=== PATIENT | female | born 1945 | race Caucasian/White ===

== ENCOUNTER → 2016-02-21 | Outpatient (CLI) | payer MEDICARE | LOC: RAD 09:23 | PROVIDERS: ATTEND Internal Medicine Gastroenterology | DX: D50.8 Other iron deficiency anemias (principal) | CPT/HCPCS: 74250 ==

== ENCOUNTER 2016-06-15 22:04 | Emergency (ER) | payer MEDICARE ==
[2016-06-15 23:47] LABS: ABSOLUTE BASOPHILS # (AUTO) 0.1 10^3/uL (0.0-0.2); ABSOLUTE EOSINOPHILS # (AUTO) 0.4 10^3/uL (0.0-0.6); ABSOLUTE LYMPHOCYTES (AUTO) 3.1 10^3/uL (0.5-4.7); ABSOLUTE MONOCYTES (AUTO) 0.8 10^3/uL (0.1-1.4); EOSINOPHILS % (AUTO) 4.2 % (0-6); HEMOGLOBIN 12.4 g/dL (12.0-15.5); HGB HCT DIFFERENCE -0.8; LYMPHOCYTES % (AUTO) 33.1 % (13-45); MEAN CORPUSCULAR HEMOGLOBIN 27.5 pg (27.0-33.4); MEAN CORPUSCULAR HGB CONC 32.6 g/dL (32.0-36.0); MEAN CORPUSCULAR VOLUME 84 fl (80-97); MONOCYTES % (AUTO) 8.3 % (3-13); RED CELL DISTRIBUTION WIDTH 14.1 % (11.5-14.0); SEGMENTED NEUTROPHILS % (AUTO) 53.4 % (42-78); WHITE BLOOD COUNT 9.3 10^3/uL (4.0-10.5)
[2016-06-15 23:48] LABS: APPEARANCE,URINE SLIGHTLY-CLOUDY; BILIRUBIN,URINE NEGATIVE (NEGATIVE); GLUCOSE, URINE NEGATIVE (NEGATIVE); KETONES,URINE NEGATIVE (NEGATIVE); LEUKOCYTE ESTERASE,URINE NEGATIVE (NEGATIVE); NITRITE,URINE NEGATIVE (NEGATIVE); PROTEIN,URINE NEGATIVE (NEGATIVE); URINE SPECIFIC GRAVITY 1.029; UROBILINOGEN,URINE NEGATIVE mg/dL (<2.0)
--- NOTE | 2016-06-16 | ER Document Report ---
ED General - General Chief Complaint: Swelling Stated Complaint: LEG PAIN Time seen by provider: 00:00 Mode of Arrival: Ambulatory Information source: Patient TRAVEL OUTSIDE OF THE [place] IN LAST 30 DAYS: No - HPI Patient complains to provider of: bilateral lower extremity swelling, facial swelling Onset: Last week Onset/Duration: Gradual Quality of pain: Achy Severity: Mild Associated symptoms: Shortness of breath Exacerbated by: Denies Relieved by: Denies Similar symptoms previously: No Recently seen / treated by doctor: Yes Notes: Patient is a 71-year-old female who presents to emergency room complaining of bilateral lower extremity and facial swelling that's been going on over the past week, she reports that her legs feel heavy and hurt, and that her facial swelling was noticeable to her son recently as well, she is occasionally nauseated, and has dyspnea on exertion, sleeps on 2 pillows at night, denies any cough, cold or congestion, no fever or chills, she occasionally has pain in the right shoulder as well, patient recently had a medication change from Wellbutrin to Effexor approximate one month ago, otherwise no other medication changes, denies any headache, she has lost approximately 80 pounds over the past 2 years since her , has a history of anemia with iron infusions in the past, diabetes which is well controlled and hypothyroidism which she reports as well-controlled as well - Related Data Allergies/Adverse Reactions: lidocaine [Lidocaine] Allergy (Verified 06/15/16 23:06) Past Medical History - General Information source: Patient - Social History Smoking Status: Never Smoker Family History: Reviewed & Not Pertinent Patient has suicidal ideation: No Patient has homicidal ideation: No Endocrine Medical History: Reports: Hx Diabetes Mellitus Type 2 Renal/ Medical History: Denies: Hx Peritoneal Dialysis Review of Systems - Review of Systems Constitutional: No symptoms reported EENT: No symptoms reported Cardiovascular: Edema Respiratory: Short of breath Gastrointestinal: Nausea Genitourinary: No symptoms reported Female Genitourinary: No symptoms reported Musculoskeletal: No symptoms reported Skin: No symptoms reported Hematologic/Lymphatic: No symptoms reported Neurological/Psychological: No symptoms reported -: Yes All other systems reviewed and negative Physical Exam - Vital signs Vitals: Temp Pulse Resp BP Pulse Ox 97.4 F 90 20 148/80 H 100 06/15/16 23:06 06/15/16 23:06 06/15/16 23:06 06/15/16 23:06 06/15/16 23:06 Interpretation: Normal - General General appearance: Appears well, Alert - HEENT Head: Normocephalic, Atraumatic Eyes: Normal Pupils: PERRL - Respiratory Respiratory status: No respiratory distress Chest status: Nontender Breath sounds: Normal Chest palpation: Normal - Cardiovascular Rhythm: Regular Heart sounds: Normal auscultation Murmur: No - Abdominal Inspection: Normal Distension: No distension Bowel sounds: Normal Tenderness: Nontender Organomegaly: No organomegaly - Back Back: Normal, Nontender - Extremities General upper extremity: Normal inspection, Nontender, Normal color, Normal ROM , Normal temperature General lower extremity: Normal inspection, Nontender, Normal color, Normal ROM , Normal temperature, Normal weight bearing. No: Juan's sign - Neurological Neuro grossly intact: Yes Cognition: Normal Orientation: AAOx4 Abram Coma Scale Eye Opening: Spontaneous [place]am Coma Scale Verbal: Oriented Abram Coma Scale Motor: Obeys Commands [place] Coma Scale Total: 15 Speech: Normal Motor strength normal: LUE, RUE, LLE, RLE Sensory: Normal - Psychological Associated symptoms: Normal affect, Normal mood - Skin Skin Temperature: Warm Skin Moisture: Dry Skin Color: Normal Course - Re-evaluation Re-evalutation: 06/16/16 01:03 Lab and imaging findings discussed with patient at bedside which are unremarkable, she was given a copy of these results for follow-up with her primary care provider and advised to return if symptoms worsen, patient acknowledges understanding and agreement with this plan - Vital Signs Vital signs: Temp Pulse Resp BP Pulse Ox 97.8 F 85 18 139/65 H 98 06/16/16 01:06 06/16/16 01:06 06/16/16 01:06 06/16/16 01:06 06/16/16 01:06 - Laboratory Result Diagrams: 06/15/16 23:31 06/15/16 23:31 Laboratory results interpreted by me: 06/15/16 06/15/16 06/15/16 23:31 23:31 23:31 RDW 14.1 H Sodium 147.7 H BUN 25 H Calcium 10.5 H Urine Ascorbic Acid 40 H - Diagnostic Test Radiology reviewed: Image reviewed, Reports reviewed - EKG Interpretation by Me EKG shows normal: Sinus rhythm Rate: Normal Rhythm: NSR Heart block present: 1st Degree Discharge - Discharge Clinical Impression: Peripheral edema Condition: Stable Disposition: HOME, SELF-CARE Instructions: Edema, Peripheral ([facility]) Additional Instructions: Follow up with your primary care provider in one to 2 days. Return to the emergency room immediately if symptoms worsen or any additional concerns. Referrals: TAY PERDUE DO [Primary Care Provider] - Follow up as needed
[2016-06-16 00:01] LABS: ALANINE AMINOTRANSFERASE 28 U/L (9-52); ALBUMIN 4.6 g/dL (3.5-5.0); ALKALINE PHOSPHATASE 73 U/L (38-126); ANION GAP 16 (5-19); ASPARTATE AMINO TRANSFERASE 21 U/L (14-36); BILIRUBIN,DIRECT 0.1 mg/dL (0.0-0.4); BILIRUBIN,TOTAL 0.3 mg/dL (0.2-1.3); BLOOD UREA NITROGEN 25 mg/dL (7-20); CALCIUM 10.5 mg/dL (8.4-10.2); CARBON DIOXIDE 30 mmol/L (22-30); CHLORIDE 102 mmol/L (98-107); CREATINE KINASE 43 U/L (30-135); CREATININE RESULT 0.73 mg/dL (0.52-1.25); GLUCOSE 96 mg/dL (75-110); SODIUM 147.7 mmol/L (137-145); TOTAL PROTEIN 7.7 g/dL (6.3-8.2)
[2016-06-16 00:39] LABS: FREE T3 3.25 pg/mL (2.77-5.27)
[2016-06-16 00:53] LABS: THYROID STIMULATING HORMONE 2.53 uIU/mL (0.47-4.68)
[2016-06-16 01:16] VITALS: BP 139/65
--- NOTE | 2016-06-16 10:17 | EKG REPORT ---
SEVERITY:- ABNORMAL ECG - SINUS RHYTHM FIRST DEGREE AV BLOCK BORDERLINE LEFT AXIS DEVIATION : Confirmed by: Anna Yusuf 16-Jun-2016 10:16:27
== END 2016-06-16 01:17 | disposition home or self-care (01) ==
LOC: ER 22:04
DX: R60.9 Edema, unspecified (principal); M79.89 Other specified soft tissue disorders
CPT/HCPCS: 36415; 71020; 80053; 81001; 82550; 82553; 83880; 84439; 84443; 84481; 84484; 85025; 93005; 93010; 99285

== ENCOUNTER → 2017-08-22 | Outpatient (CLI) | payer MEDICARE ==
--- NOTE | 2017-08-22 14:10 | WOMENS IMAGING REPORT ---
EXAM DESCRIPTION: 3D SCREENING MAMMO BILAT COMPLETED DATE/TIME: 08/22/2017 12:08 pm REASON FOR STUDY: SCREENING MAMMO Z12.31 ENCNTR SCREEN MAMMOGRAM FOR MALIGNANT NEOPLASM OF SABA COMPARISON: 01/19/2016 TECHNIQUE: Standard craniocaudal and mediolateral oblique views of each breast recorded using digita l acquisition and breast tomosynthesis. LIMITATIONS: None. FINDINGS: No masses, calcifications or architectural distortion. No areas of suspicion. Read with the assistance of CAD. .[facility] - R2 Cenova Version 1.3 .[facility] Imaging - R2 Cenova Version 1.3 .[facility] Imaging - R2 Cenova Version 2.4 .[facility] [place] R2 Cenova Version 2.4 .[facility] - R2 [employer] Version 9.2 IMPRESSION: NORMAL MAMMOGRAM. BIRADS 1. BREAST DENSITY: a. The breasts are almost entirely fatty. BIRAD: 1 NEGATIVE RECOMMENDATION: ROUTINE SCREENING PLEASE CONTINUE YEARLY BILATERAL SCREENING MAMMOGRAPHY/TOMOSYNTHESIS IN AUGUST 2018 COMMENT: The patient has been notified of the results by letter per MQSA requirements. Additional no tification policies are in place for contacting patient with suspicious or incomplete findings. Quality ID #225: The [employer] recommends an annual screening mammogram for women aged 40 years or over. This facility utilizes a reminder system to ensure that all patients receive reminder letters, and/or direct phone calls for appointments. This includes reminders for routine scr eening mammograms, diagnostic mammograms, or other Breast Imaging Interventions when appropriate. Th is patient will be placed in the appropriate reminder system. The [employer] (ACR) has developed recommendations for screening MRI of the breast s in certain patient populations, to be used in conjunction with mammography. Breast MRI surveillanc e may be appropriate for women with more than 20% lifetime risk of developing breast cancer as deter mined by genetic testing, significant family history of the disease, or history of mantle radiation f or Hodgkins Disease. ACR Practice Guidelines 2008. DBT Technology DBT is a type of tomographic mammography. With conventional mammography, overlapping breast tissue ma y make lesions difficult to detect, even with good compression. DBT uses an x-ray tube that rotates a round the breast, taking images at different angles. These images are then combined to create thin sl ices of the breast that the radiologist can view as a 3D reconstruction. The Connected unit can perform full-field digital mammograms (2D imaging); or DBT (3D imaging); or both, in a combination mode that quickly performs both the mammogram and the tomosynthesis scan while the breast is still compressed. PQRS 6045F: Fluoroscopic imaging is not utilized for breast tomosynthesis. TECHNICAL DOCUMENTATION: FINDING NUMBER: (1) ASSESSMENT: (1) JOB ID: [id number] [employer]- All Rights Reserved Reading location - IP/workstation name: [facility]-[email or web address]
== END ==
LOC: WI 11:22
PROVIDERS: ATTEND Family Medicine
DX: Z12.31 Encounter for screening mammogram for malignant neoplasm of breast (principal)
CPT/HCPCS: 77063; 77067

== ENCOUNTER 2017-08-28 01:53 | Emergency (ER) | payer MEDICARE ==
[2017-08-28 02:02] VITALS: BP 132/63
== END 2017-08-28 03:25 | disposition left against medical advice (07) ==
LOC: ER 01:53
DX: Z53.21 Procedure and treatment not carried out due to patient leaving prior to being seen by health care provider (principal)

== ENCOUNTER 2017-11-23 12:56 | Emergency (ER) | payer MEDICARE ==
[2017-11-23 13:04] VITALS: BP 122/49
--- NOTE | 2017-11-23 14:22 | ER Document Report ---
ED Eye Complaint - General Chief Complaint: Eye Problem Stated Complaint: EYE PAIN Time Seen by Provider: 11/23/17 14:10 Information source: Patient Notes: Patient is a 72-year-old female comes emergency room with a complaint of "bleeding I". Patient states she was playing cards with her friends when they noticed that she had a blood he should look in color to the inside of her left eye. 1 of their card players was a nurse and she told patient she needed to go to ER because this type of problem could lead to a retinal detachment. Patient got extremely nervous and came to the emergency room. She denies any visual problems no pain. She is not on any Blood thinners. She is a [employer] and she has pernicious anemia and her hemoglobin hematocrit have been fluctuating over the last few days from 8-11 she was scared it had something to do with that. Denies any known trauma. She cannot remember doing any lifting moving or pulling or sneezing. TRAVEL OUTSIDE OF THE [place] IN LAST 30 DAYS: No - HPI Onset: Just prior to arrival Eye location: Left Injury: No Occurred at: Home Quality of pain: No pain Severity: Mild Pain Level: 1 Safety glasses worn: No Contact lenses worn: No Associated symptoms: Redness. denies: Loss of vision - Related Data Allergies/Adverse Reactions: lidocaine [Lidocaine] Allergy (Verified 06/15/16 23:06) Past Medical History - General Information source: Patient - Social History Smoking Status: Never Smoker Cigarette use (# per day): No Chew tobacco use (# tins/day): No Smoking Education Provided: No Frequency of alcohol use: None Drug Abuse: None Lives with: Family Family History: Reviewed & Not Pertinent Patient has suicidal ideation: No Patient has homicidal ideation: No Endocrine Medical History: Reports: Hx Diabetes Mellitus Type 2 Renal/ Medical History: Denies: Hx Peritoneal Dialysis Psychiatric Medical History: Reports: Hx Depression - Immunizations Hx Diphtheria, Pertussis, Tetanus Vaccination: Yes Review of Systems - Review of Systems Constitutional: No symptoms reported EENT: Eye discharge Cardiovascular: No symptoms reported Respiratory: No symptoms reported Gastrointestinal: No symptoms reported Genitourinary: No symptoms reported Female Genitourinary: No symptoms reported Musculoskeletal: No symptoms reported Skin: No symptoms reported Hematologic/Lymphatic: No symptoms reported Neurological/Psychological: No symptoms reported -: Yes All other systems reviewed and negative Physical Exam - Vital signs Vitals: Temp Pulse Resp BP Pulse Ox 98.4 F 89 14 122/49 L 98 11/23/17 13:03 11/23/17 13:03 11/23/17 13:03 11/23/17 13:03 11/23/17 13:03 Interpretation: Normal - Notes Notes: Patient is a well-nourished well-developed 72-year-old female she is in no apparent distress. - General General appearance: Appears well, Alert - HEENT Head: Normocephalic, Atraumatic Eyes: Normal Conjunctiva: Injected, Other - Examination of patient's left eye shows that she has a subconjunctival hemorrhage extending from the medial canthus to the iris. It does not involve the iris. There is no further extension in the left side of the conjunctival is normal. Cornea: Normal Extraocular movements intact: Yes Eyelashes: Normal Pupils: PERRL Visual acuity- Right eye: 20/70 Visual acuity- Left eye: 20/40 Visual acuity- Both eyes: 20/40 Corrective lenses worn: Yes Fundascopic: Normal Visual mayer normal: Yes Ears: Normal External canal: Normal Tympanic membrane: Normal Sinus: Normal Nasal: Normal Mouth/Lips: Normal Mucous membranes: Normal Pharynx: Normal Neck: Normal - Respiratory Respiratory status: No respiratory distress Chest status: Nontender Breath sounds: Normal. No: Rales, Rhonchi, Stridor, Wheezing Chest palpation: Normal - Cardiovascular Rhythm: Regular Heart sounds: Normal auscultation Murmur: No - Neurological Neuro grossly intact: Yes Cognition: Normal Orientation: AAOx4 Abram Coma Scale Eye Opening: Spontaneous [place] Coma Scale Verbal: Oriented Abram Coma Scale Motor: Obeys Commands [place] Coma Scale Total: 15 Speech: Normal - Skin Skin Temperature: Warm Skin Moisture: Dry Skin Color: Normal, [place] Course - Re-evaluation Re-evalutation: 11/23/17 14:24 Stated patient was told she needed to come to ER because of the subconjunctival hemorrhages because that could lead to a retinal detachment. I do not know of any association between the 2. Patient denies that his good it is not corrected she does not wear glasses. At this point she is not on any blood thinners so probably a traumatic subconjunctival hemorrhage from sneezing or bending over. At this time I am discharging patient home with suggestions to blow her nose carefully and softly and to avoid bending over. I have also instructed her that she may need to follow-up with her freight service inspector during the week if it does not clearing up. I have informed her this could take a week or 2 before to totally reabsorb itself. So mentioned to her that if for any chance that it starts to find his way into the blue part of her eye to return to ER for recheck. - Vital Signs Vital signs: Temp Pulse Resp BP Pulse Ox 98.4 F 89 14 122/49 L 98 11/23/17 13:03 11/23/17 13:03 11/23/17 13:03 11/23/17 13:03 11/23/17 13:03 Discharge - Discharge Clinical Impression: Conjunctival hemorrhage of left eye Condition: Stable Disposition: HOME, SELF-CARE Instructions: Subconjunctival Hemorrhage ([facility]) Additional Instructions: Home today rest. As I indicated to you try to avoid blowing her nose hard or doing any lifting moving or pulling or anything that would cause you to have pressure shifted to your head and eyes. This would include bending over. If you are thinking To bend over and squat to do so. If you are having any noticeable visual problems return to ER for a recheck. Also you may want to schedule with her freight service inspector is for follow-up sometime in the next week or 2. Referrals: DIANE NELSON MD [Primary Care Provider] - Follow up as needed
== END 2017-11-23 14:30 | disposition home or self-care (01) ==
LOC: ER 12:56
DX: H11.32 Conjunctival hemorrhage, left eye (principal); H57.12 Ocular pain, left eye; E11.9 Type 2 diabetes mellitus without complications
CPT/HCPCS: 99282

== ENCOUNTER 2017-12-02 06:50 | Emergency (ER) | payer MEDICARE ==
--- NOTE | 2017-12-02 07:18 | ER Document Report ---
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 Friday she did do breaking out in the yard but yesterday she rested and continued with the cough and headache. She feels like she is swollen and congested the base of her neck. No chest pain or shortness of breath. No nausea vomiting or diarrhea. No abdominal pain. Low-grade fever on Friday vital signs are stable at this time. Pulse ox is 99% on room air. PCP is Dr. Gutiérrez at 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 She has not gotten her flu shot yet. TRAVEL OUTSIDE OF THE [place] IN LAST 30 DAYS: No - Related Data Allergies/Adverse Reactions: lidocaine [Lidocaine] Allergy (Verified 06/15/16 23:06) Past Medical History - General Information source: Patient - Social History Smoking Status: Never Smoker Frequency of alcohol use: None Drug Abuse: None Lives with: Family Family History: Reviewed & Not Pertinent Patient has suicidal ideation: No Patient has homicidal ideation: No - Medical History Notes: Hypothyroidism, anemia (AVM they can't find) 8.7 hgb on friday11-28-17 Pulmonary Medical History: Reports: Hx Asthma Endocrine Medical History: Reports: Hx Diabetes Mellitus Type 2 Psychiatric Medical History: Reports: Hx Depression Past Surgical History: Reports: Hx Orthopedic Surgery, Hx Tonsillectomy - Immunizations Hx Diphtheria, Pertussis, Tetanus Vaccination: Yes Review of Systems - Review of Systems Constitutional: See HPI EENT: No symptoms reported Cardiovascular: No symptoms reported Respiratory: See HPI Gastrointestinal: No symptoms reported Genitourinary: No symptoms reported Female Genitourinary: No symptoms reported Musculoskeletal: No symptoms reported Skin: No symptoms reported Hematologic/Lymphatic: No symptoms reported Neurological/Psychological: No symptoms reported Physical Exam - Vital signs Vitals: Temp Pulse Resp BP Pulse Ox 97.6 F 78 20 132/57 H 97 12/02/17 06:52 12/02/17 06:52 12/02/17 06:52 12/02/17 06:52 12/02/17 06:52 Interpretation: Normal - General General appearance: Appears well, Alert In distress: None - HEENT Head: Normocephalic, Atraumatic Eyes: Normal Conjunctiva: Normal Pupils: PERRL Mucous membranes: Normal Pharynx: Normal Neck: Supple. No: Lymphadenopathy - Respiratory Respiratory status: No respiratory distress Chest status: Nontender Breath sounds: Normal Chest palpation: Normal - Cardiovascular Rhythm: Regular Heart sounds: Normal auscultation Murmur: No - Abdominal Inspection: Normal Distension: No distension Bowel sounds: Normal Tenderness: Nontender Organomegaly: No organomegaly - Back Back: Normal, Nontender. No: CVA tenderness - Extremities General upper extremity: Normal inspection, Nontender, Normal color, Normal ROM , Normal temperature General lower extremity: Normal inspection, Nontender, Normal color, Normal ROM , Normal temperature, Normal weight bearing. No: Juan's sign - Neurological Neuro grossly intact: Yes Cognition: Normal Orientation: AAOx4 Abram Coma Scale Eye Opening: Spontaneous Abram Coma Scale Verbal: Oriented Abram Coma Scale Motor: Obeys Commands [place] Coma Scale Total: 15 Speech: Normal Motor strength normal: LUE, RUE, LLE, RLE Sensory: Normal - Psychological Associated symptoms: Normal affect, Normal mood - Skin Skin Temperature: Warm Skin Moisture: Dry Skin Color: Normal Skin irregularity: negative: Rash Course - Re-evaluation Re-evalutation: 12/02/17 08:46 Patient states the nebulizer treatments seem to break up some of the mucus she continues to have clear lungs. Chest x-ray is negative. 12/02/17 08:47 I spoke at length with Dr. Jason Melo who reviewed the lab work and he will set up an iron infusion for her she is okay with this. She said that if she had had a albuterol metered-dose inhaler at home she would not of come in today but she was glad because she now knows that her hemoglobin has dropped from 8.7 on Friday to 7.8 today. She has no dizziness chest pain or shortness of breath. Her vital signs are stable and she is going to stop by his office to schedule the iron infusion this week - Vital Signs Vital signs: Temp Pulse Resp BP Pulse Ox 97.6 F 78 10 L 117/68 100 12/02/17 06:52 12/02/17 06:52 12/02/17 08:22 12/02/17 08:22 12/02/17 08:22 - Laboratory Result Diagrams: 12/02/17 08:15 12/02/17 08:15 Laboratory results interpreted by me: 12/02/17 12/02/17 08:15 08:15 RBC 2.77 L Hgb 7.8 L Hct 23.9 L RDW 15.1 H Chloride 109 H Total Protein 6.0 L Discharge - Discharge Clinical Impression: Chronic anemia, Headache, Cough Condition: Good Disposition: HOME, SELF-CARE Instructions: Anemia ([facility]), Bronchitis ([facility]), Inhaled Bronchodilators ([facility]) Additional Instructions: Go to Dr. Jason Melo's office now to schedule your iron infusion Albuterol metered-dose inhaler 2 puffs every 3-4 hours for cough Return to the emergency room for any chest pain shortness of breath fever trouble breathing etc. Prescriptions: Albuterol Sulfate [Proair HFA Inhalation Aerosol 8.5 gm MDI] 2 puff IH Q3HP PRN #1 [email or web address] PRN Reason: Referrals: DIANE GUTIÉRREZ MD [Primary Care Provider] - Follow up as needed
[2017-12-02] MEDS ORDERED: ALBUTEROL SULFATE 0.083% NEB 2.5 MG/3 ML AMPUL NEB ONE (07:26)
--- NOTE | 2017-12-02 08:00 | RADIOLOGY REPORT (SQ) ---
EXAM DESCRIPTION: X-ray two view chest. CLINICAL HISTORY: 72 years Female, cough COMPARISON: Prior two-view chest x-ray performed on 06/16/2016 TECHNIQUE: PA and Lateral views of the chest performed on 12/02/2017 at 8:10 AM FINDINGS: The lungs are well expanded and are clear. The costophrenic sulci are clear. There is no evidence of a pneumothorax. The cardiac silhouette is normal in size. The mediastinal contours are normal. No acute osseous abnormalities are identified. No focal soft tissue abnormalities are identified. IMPRESSION: No evidence of acute intrathoracic disease. No significant change since the prior study.
[2017-12-02 08:48] LABS: ABSOLUTE BASOPHILS # (AUTO) 0.1 10^3/uL (0.0-0.2); ABSOLUTE EOSINOPHILS # (AUTO) 0.2 10^3/uL (0.0-0.6); ABSOLUTE LYMPHOCYTES (AUTO) 1.7 10^3/uL (0.5-4.7); ABSOLUTE MONOCYTES (AUTO) 0.6 10^3/uL (0.1-1.4); ABSOLUTE NEUT (AUTO) 3.3 10^3/uL (1.7-8.2); BASOPHILS % (AUTO) 1.3 % (0-2); EOSINOPHILS % (AUTO) 3.9 % (0-6); HEMATOCRIT 23.9 % (36.0-47.0); LYMPHOCYTES % (AUTO) 28.8 % (13-45); MEAN CORPUSCULAR HEMOGLOBIN 28.3 pg (27.0-33.4); MEAN CORPUSCULAR HGB CONC 32.8 g/dL (32.0-36.0); MEAN CORPUSCULAR VOLUME 86 fl (80-97); MONOCYTES % (AUTO) 9.7 % (3-13); PLATELET COUNT 250 10^3/uL (150-450); RED BLOOD COUNT 2.77 10^6/uL (3.72-5.28); RED CELL DISTRIBUTION WIDTH 15.1 % (11.5-14.0); SEGMENTED NEUTROPHILS % (AUTO) 56.3 % (42-78); TOTAL CELLS COUNTED % (AUTO) 100 %; WHITE BLOOD COUNT 5.8 10^3/uL (4.0-10.5)
[2017-12-02 08:52] LABS: HEMOGLOBIN 7.8 g/dL (12.0-15.5)
[2017-12-02 08:58] LABS: ALANINE AMINOTRANSFERASE 21 U/L (9-52); ALBUMIN 3.5 g/dL (3.5-5.0); ALKALINE PHOSPHATASE 51 U/L (38-126); ANION GAP 7 (5-19); ASPARTATE AMINO TRANSFERASE 16 U/L (14-36); BILIRUBIN,DIRECT 0.2 mg/dL (0.0-0.4); BILIRUBIN,TOTAL 0.4 mg/dL (0.2-1.3); BLOOD UREA NITROGEN 15 mg/dL (7-20); CARBON DIOXIDE 27 mmol/L (22-30); CHLORIDE 109 mmol/L (98-107); GLUCOSE 79 mg/dL (75-110); POTASSIUM 4.2 mmol/L (3.6-5.0); SODIUM 143.1 mmol/L (137-145)
[2017-12-02 10:40] VITALS: BP 132/62
== END 2017-12-02 10:30 | disposition home or self-care (01) ==
LOC: ER 06:50
DX: R05 Cough (principal); R51 Headache; Q27.30 Arteriovenous malformation, site unspecified; D63.8 Anemia in other chronic diseases classified elsewhere; J45.909 Unspecified asthma, uncomplicated; E11.9 Type 2 diabetes mellitus without complications; Z88.4 Allergy status to anesthetic agent
CPT/HCPCS: 94640; 99285; 36415; 85025; 80053; 71046; A9270

== ENCOUNTER 2017-12-21 14:20 | Emergency (ER) | payer MEDICARE ==
[2017-12-21] MEDS ORDERED: ONDANSETRON HCL INJ/PF 4 MG/2 ML SDV IV ONE (14:57)
[2017-12-21] MEDS ORDERED: MORPHINE SULFATE 10 MG/ML INJ IV ONE ×2 (14:57→17:06)
--- NOTE | 2017-12-21 15:00 | ER Document Report ---
ED Medical Screen (RME) - General Chief Complaint: Back Pain Stated Complaint: BACK PAIN Time Seen by Provider: 12/21/17 14:57 Mode of Arrival: Wheelchair Information source: Patient Notes: This is a 72-year-old female recently treated for bronchitis presents to the emergency room with atraumatic. Patient is writhing around in pain and pit. She denies any saddle anesthesia or difficulty urinating. She states she woke up and went to the bathroom and was having pain on relation. She denies any recent fever. TRAVEL OUTSIDE OF THE [place] IN LAST 30 DAYS: No - Related Data Allergies/Adverse Reactions: lidocaine [Lidocaine] Allergy (Verified 12/21/17 14:57) Past Medical History - Social History Chew tobacco use (# tins/day): No Frequency of alcohol use: None Drug Abuse: None Pulmonary Medical History: Reports: Hx Asthma Endocrine Medical History: Reports: Hx Diabetes Mellitus Type 2 Renal/ Medical History: Denies: Hx Peritoneal Dialysis Psychiatric Medical History: Reports: Hx Depression Past Surgical History: Reports: Hx Orthopedic Surgery, Hx Tonsillectomy - Immunizations Hx Diphtheria, Pertussis, Tetanus Vaccination: Yes Physical Exam - Vital signs Vitals: Temp Pulse Resp BP Pulse Ox 98.1 F 95 36 H 109/82 100 12/21/17 14:27 12/21/17 14:27 12/21/17 14:27 12/21/17 14:27 12/21/17 14:27 Course - Vital Signs Vital signs: Temp Pulse Resp BP Pulse Ox 98.1 F 95 22 H 109/82 100 12/21/17 14:27 12/21/17 14:27 12/21/17 14:32 12/21/17 14:27 12/21/17 14:27 Doctor's Discharge - Discharge Referrals: DIANE NELSON MD [Primary Care Provider] - Follow up as needed
[2017-12-21 15:21] LABS: ABSOLUTE BASOPHILS # (AUTO) 0.1 10^3/uL (0.0-0.2); ABSOLUTE EOSINOPHILS # (AUTO) 0.1 10^3/uL (0.0-0.6); ABSOLUTE LYMPHOCYTES (AUTO) 1.6 10^3/uL (0.5-4.7); ABSOLUTE MONOCYTES (AUTO) 0.8 10^3/uL (0.1-1.4); ABSOLUTE NEUT (AUTO) 6.6 10^3/uL (1.7-8.2); BASOPHILS % (AUTO) 0.7 % (0-2); EOSINOPHILS % (AUTO) 1.4 % (0-6); HEMATOCRIT 34.6 % (36.0-47.0); HEMOGLOBIN 11.5 g/dL (12.0-15.5); LYMPHOCYTES % (AUTO) 16.9 % (13-45); MEAN CORPUSCULAR HEMOGLOBIN 29.3 pg (27.0-33.4); MEAN CORPUSCULAR HGB CONC 33.2 g/dL (32.0-36.0); MEAN CORPUSCULAR VOLUME 88 fl (80-97); MONOCYTES % (AUTO) 8.8 % (3-13); PLATELET COUNT 261 10^3/uL (150-450); RED BLOOD COUNT 3.93 10^6/uL (3.72-5.28); RED CELL DISTRIBUTION WIDTH 16.6 % (11.5-14.0); SEGMENTED NEUTROPHILS % (AUTO) 72.2 % (42-78); TOTAL CELLS COUNTED % (AUTO) 100 %; WHITE BLOOD COUNT 9.2 10^3/uL (4.0-10.5)
[2017-12-21 15:32] LABS: ALANINE AMINOTRANSFERASE 13 U/L (9-52); ALBUMIN 4.5 g/dL (3.5-5.0); ALKALINE PHOSPHATASE 80 U/L (38-126); ANION GAP 16 (5-19); ASPARTATE AMINO TRANSFERASE 25 U/L (14-36); BILIRUBIN,DIRECT 0.3 mg/dL (0.0-0.4); BILIRUBIN,TOTAL 0.7 mg/dL (0.2-1.3); BLOOD UREA NITROGEN 17 mg/dL (7-20); CALCIUM 9.9 mg/dL (8.4-10.2); CARBON DIOXIDE 23 mmol/L (22-30); CHLORIDE 102 mmol/L (98-107); GLUCOSE 170 mg/dL (75-110); POTASSIUM 4.1 mmol/L (3.6-5.0); SODIUM 141.4 mmol/L (137-145); TOTAL PROTEIN 7.8 g/dL (6.3-8.2)
[2017-12-21 16:03] LABS: ERYTHROCYTE SEDIMENTATION RATE 99 mm/hr (0-30)
[2017-12-21] MEDS ORDERED: KETOROLAC TROMETHAMINE INJ/PF 30 MG/1 ML SDV IV ONE (17:07)
--- NOTE | 2017-12-21 17:18 | RADIOLOGY REPORT (SQ) ---
EXAM DESCRIPTION: CT LUMBAR SPINE WITHOUT COMPLETED DATE/TIME: 12/21/2017 3:49 pm REASON FOR STUDY: lower lumbar pain COMPARISON: None. TECHNIQUE: Axial images acquired through the lumbar spine without intravenous contrast. Images revi ewed with lung, soft tissue and bone windows. Reconstructed coronal and sagittal MPR images reviewed . All images stored on PACS. All CT scanners at this facility use dose modulation, iterative reconstruction, and/or weight based d osing when appropriate to reduce radiation dose to as low as reasonably achievable (ALARA). [facility]: Dose Right [facility]: CareDose [facility]: Dose Right [facility]: Teradose 4D [facility]: Smart [address] RADIATION DOSE: mGy. LIMITATIONS: None. FINDINGS: SEGMENTATION: Normal. No transitional anatomy. ALIGNMENT: Normal. VERTEBRAL BODIES: No fractures. No dislocation. No acute findings. DISCS: No significant protrusions. Study limited by lack of intrathecal contrast. PEDICLES, TRANSVERSE PROCESSES: No fractures. No dislocation. No acute findings. FACETS, POSTERIOR ELEMENTS: Facet arthropathy in the lower lumbar spine. No fractures. No dislocati on. No spinal stenosis. HARDWARE: None in the spine. VISUALIZED RIBS: No fractures. SOFT TISSUES: No significant or acute finding in adjacent soft tissues. OTHER: Probable cortical cyst in the left kidney. IMPRESSION: DEGENERATIVE CHANGES IN THE LOWER LUMBAR SPINE WITH FACET ARTHROPATHY. NO APPARENT ACUT E FINDINGS. TECHNICAL DOCUMENTATION: JOB ID: [id number] Quality ID # [id number]: Final reports with documentation of one or more dose reduction techniques (e.g., Au tomated exposure control, adjustment of the mA and/or kV according to patient size, use of iterative reconstruction technique) 2010 [employer]- All Rights Reserved Reading location - IP/workstation name: [email or web address]
[2017-12-21] MEDS ORDERED: HYDROMORPHONE HCL INJ/PF 2 MG/ML AMPULE IV ONE (19:38)
--- NOTE | 2017-12-21 19:47 | ER Document Report ---
ED General Pain - General Chief Complaint: Back Pain Stated Complaint: BACK PAIN Time Seen by Provider: 12/21/17 14:57 Mode of Arrival: Wheelchair Information source: Patient, Relative Notes: Patient is a 72-year-old female comes into the emergency room with her son accompanied her. Patient was originally seen on the PET side and was sent to us over here. Originally it was noted the patient was very traumatic she was yelling and screaming and could not be consoled because of her secondary to pain upper back. She was seen and treated in the pit and given 4 mg of morphine which calmed her down substantially. And they sent her over here to see us. Patient denies any known trauma. She woke up approximately 2 days ago with mid lower back pain that she has a difficult ambulating without pain. Patient states that is progressively getting worse. She denies any loss of urine or stool. She denies any foot drop. She denies any loss of sensation in lower extremities. Patient can ambulate but it just hurts. TRAVEL OUTSIDE OF THE [place] IN LAST 30 DAYS: No - HPI Onset: Other - 2-3 days. Onset/Duration: Sudden, Waxing and waning, Worse Quality of pain: Sharp, Stabbing, Throbbing Pain Level: 5 Context: New onset Typical of prior episodes of painful crisis: No Associated symptoms: Muscle aches Exacerbated by: Movement, Walking Relieved by: Supine Similar symptoms previously: No Recently seen / treated by doctor: No - Related Data Allergies/Adverse Reactions: lidocaine [Lidocaine] Allergy (Verified 12/21/17 14:57) Past Medical History - General Information source: Relative - Social History Smoking Status: Never Smoker Cigarette use (# per day): No Chew tobacco use (# tins/day): No Smoking Education Provided: No Frequency of alcohol use: None Drug Abuse: None Family History: Reviewed & Not Pertinent Patient has suicidal ideation: No Patient has homicidal ideation: No Pulmonary Medical History: Reports: Hx Asthma Endocrine Medical History: Reports: Hx Diabetes Mellitus Type 2 Renal/ Medical History: Denies: Hx Peritoneal Dialysis Psychiatric Medical History: Reports: Hx Depression Past Surgical History: Reports: Hx Orthopedic Surgery, Hx Tonsillectomy - Immunizations Hx Diphtheria, Pertussis, Tetanus Vaccination: Yes Review of Systems - Review of Systems Constitutional: No symptoms reported EENT: No symptoms reported Cardiovascular: No symptoms reported Respiratory: No symptoms reported Gastrointestinal: No symptoms reported Genitourinary: No symptoms reported Female Genitourinary: No symptoms reported Musculoskeletal: Back pain Skin: No symptoms reported Hematologic/Lymphatic: No symptoms reported Neurological/Psychological: No symptoms reported -: Yes All other systems reviewed and negative Physical Exam - Vital signs Vitals: Temp Pulse Resp BP Pulse Ox 98.1 F 95 36 H 109/82 100 12/21/17 14:27 12/21/17 14:27 12/21/17 14:27 12/21/17 14:27 12/21/17 14:27 Interpretation: Hypotensive, Tachypneic - Notes Notes: PHYSICAL EXAMINATION: GENERAL: The time I got patient she was in the ER room on the gurney resting comfortably. She is a well-nourished well-developed 72-year-old female who I have taken care of in the past for other minor problems. Patient is never been one to complain about pain. She currently is lying on the gurney with her knees over a roll. This relieves the discomfort and pain from her lower back. She also denies to me that she has had any trauma. She denies any loss of urine or stool. And again denies any loss of sensation in lower extremities. HEAD: Atraumatic, normocephalic. EYES: Pupils equal round and reactive to light, extraocular movements intact, conjunctiva are normal. ENT: Nares patent, oropharynx clear without exudates. Moist mucous membranes. NECK: Normal range of motion, supple without lymphadenopathy LUNGS: Breath sounds clear to auscultation bilaterally and equal. No wheezes rales or rhonchi. HEART: Regular rate and rhythm without murmurs ABDOMEN: Soft, nontender, nondistended abdomen. No guarding, no rebound. No masses appreciated. Female : deferred Musculoskeletal: Examination patient's lower extremities shows she has sensation bilaterally equally up to the waist. She also has good DTRs in the lower extremities. Patient has good flexion and extension of the ankles and feet with both active and passive range of motion. And she has good strength against resistance in all directions. She has some minor discomfort with abduction and abduction of her knees against resistance. Discomfort and pain goes to the lower back portion only. Palpation of the back shows she is tender at the L4-L5 area. There is no black and blue ecchymosis or abrasions noted. Patient can rotate right and left without any difficulty but flexion and extension seem to give her the most problem. NEUROLOGICAL: Normal speech, gait not tested secondary to pain. Normal sensory , motor exams PSYCH: Normal mood, normal affect. SKIN: Warm, Dry, normal turgor, no rashes or lesions noted. Course - Re-evaluation Re-evalutation: 12/22/17 01:[address] was totally normal and found no abnormalities. At present I believe patient is more spasm than anything else causing her to have increased pain. She does not have any radiation pain down the leg so therefore I do not believe this is a sciatic presentation. However she may have a nerve impingement. I have covered her with some pain medication and she feels much better. She was able to move and transfer from the gurney to the wheelchair and her son was impressed with that portion of it. He states the part of her problem is that she does not want to act 72 years old that she is still using a Rototiller out in the yard that she still is climbing trees to put bird food into feeders. If patient had had a sustained injury I am not sure if she would have said anything to us anyway. At this point because everything is negative and my neurologic check on her is 100% normal and she has no loss of sensation in the lower extremities and no sign of saddle paresthesia I feel is safe for her to go home. I have informed patient that if she has any difficulties with loss or feeling in the lower extremities if she loses urine or stool or she has any concerns to come back and let us see her again before. Also suggested to her that she follow-up with orthopedic I have given her the name of the orthopedic station installation supervisor she may want to do so. Also I told her that her primary care provider may want to do an MRI prior to sending her to Orth or over to a neurologist. My suggestion to her would be to get a referral to neurologist first but whoever she can be seen by would be most beneficial. She may benefit from an epidural at the local area as well. Again at this time I feel comfortable allowing patient to go home she is happy with the care she is received here as is her son. - Vital Signs Vital signs: Temp Pulse Resp BP Pulse Ox 98.1 F 70 18 115/60 98 12/21/17 14:27 12/21/17 20:25 12/21/17 20:25 12/21/17 20:25 12/21/17 20:25 - Laboratory Result Diagrams: 12/21/17 15:05 12/21/17 15:05 Laboratory results interpreted by me: 12/21/17 12/21/17 15:05 15:05 Hgb 11.5 L Hct 34.6 L RDW 16.6 H ESR 99 H Glucose 170 H Discharge - Discharge Clinical Impression: Lumbar back sprain Qualifiers: Encounter type: initial encounter Qualified Code(s): S33.5XXA - Sprain of ligaments of lumbar spine, initial encounter Condition: Stable Disposition: HOME, SELF-CARE Instructions: Ice Packs ([facility]), Low Back Pain ([facility]), Muscle Relaxers ([facility]), Muscle Strain ([facility]), Oral Narcotic Medication ([facility]), Warm Packs ([facility]) Additional Instructions: As we discussed is important that you contact your primary care tomorrow and see about having a referral to either orthopedics or neurology. I will give her the name of the orthopedic group we use here for call their part of the hospital. But you may also want to talk to a neurologist have them evaluate this low back pain. Which ever when you can get into first. The easiest waist through your primary care physician we have no neurologist on-call at present. The orthopedic group is Dr. Kenna Solis who is station installation supervisor for us tonight you may contact his office tomorrow to see if you can get into see him. They usually work well with us you are getting patient into the clinics. Remember also what I have informed you about if you have any loss of unintentional urine or stool or if you have loss of sensation in the lower extremities or you have weakness to where your foot is dragging you definitely need to come back to ER by EMS. Your primary may also want to order an MRI of your back so you had that in preparation for going to see 1 of the specialist. I will treat you with some pain medication I have can only give you a limited amount but that 2 you may want to contact to your primary about. Should you have any concerns at all return to ER for recheck. Prescriptions: Methocarbamol [Robaxin 500 mg Tablet] 500 mg PO BID #20 tablet Oxycodone HCl/Acetaminophen [Percocet 5-325 mg Tablet] 1 tab PO Q6 PRN #12 tablet PRN Reason: Referrals: DIANE NELSON MD [Primary Care Provider] - Follow up as needed LIBRA KILGORE MD [ACTIVE STAFF] - Follow up as needed
[2017-12-21 20:25] VITALS: BP 115/60
== END 2017-12-21 20:27 | disposition home or self-care (01) ==
LOC: ER 14:20
DX: S33.5XXA Sprain of ligaments of lumbar spine, initial encounter (principal); M79.10 Myalgia, unspecified site; X58.XXXA Exposure to other specified factors, initial encounter; E11.9 Type 2 diabetes mellitus without complications
CPT/HCPCS: 96376; 99284; 96374; 96375; 36415; 85025; 85652; 80053; 72131; J1885; J2270; J1170; J2405

== ENCOUNTER 2018-03-21 22:59 | Emergency (ER) | payer MEDICARE ==
[2018-03-21] MEDS ORDERED: NORMAL SALINE 1000 ML 1,000 ML IV ONE (23:49)
[2018-03-22 00:30] LABS: ABSOLUTE BASOPHILS # (AUTO) 0.1 10^3/uL (0.0-0.2); ABSOLUTE EOSINOPHILS # (AUTO) 0.2 10^3/uL (0.0-0.6); ABSOLUTE LYMPHOCYTES (AUTO) 2.5 10^3/uL (0.5-4.7); ABSOLUTE MONOCYTES (AUTO) 0.7 10^3/uL (0.1-1.4); ABSOLUTE NEUT (AUTO) 3.6 10^3/uL (1.7-8.2); EOSINOPHILS % (AUTO) 3.3 % (0-6); HEMATOCRIT 36.8 % (36.0-47.0); HEMOGLOBIN 12.4 g/dL (12.0-15.5); LYMPHOCYTES % (AUTO) 34.9 % (13-45); MEAN CORPUSCULAR HEMOGLOBIN 28.9 pg (27.0-33.4); MEAN CORPUSCULAR HGB CONC 33.7 g/dL (32.0-36.0); MEAN CORPUSCULAR VOLUME 86 fl (80-97); PLATELET COUNT 215 10^3/uL (150-450); SEGMENTED NEUTROPHILS % (AUTO) 50.8 % (42-78); TOTAL CELLS COUNTED % (AUTO) 100 %; WHITE BLOOD COUNT 7.1 10^3/uL (4.0-10.5)
--- NOTE | 2018-03-22 00:32 | ER Document Report ---
ED General - General Chief Complaint: Headache Stated Complaint: HEAD/NECK PAIN Time Seen by Provider: 03/21/18 23:40 Primary Care Provider: MILAGROS WEINBERG MD [NO LOCAL MD] - 03/23/18 (Call office Friday to make a follow up appointment.) Notes: Patient is a 73-year-old female who presents with complaint of having a sudden onset of a sharp pain in the top of her head. That is more in the right side. This while she was driving. She said since then she has had a consistent nagging headache which she describes is actually just a pain over the skin of the scalp itself. She has some tightness in the right side of her neck. She says she is unsure if the tightness in her neck is related to her chronic neck problems or if it something new. No vomiting. No fevers. No head trauma. No history of previous headaches similar to this. No weakness or numbness into her legs or arms. The pain started several days ago. TRAVEL OUTSIDE OF THE [place] IN LAST 30 DAYS: No - Related Data Allergies/Adverse Reactions: lidocaine [Lidocaine] Allergy (Verified 12/21/17 14:57) Past Medical History - Social History Smoking Status: Unknown if Ever Smoked Frequency of alcohol use: None Drug Abuse: None Family History: Reviewed & Not Pertinent Pulmonary Medical History: Reports: Hx Asthma Endocrine Medical History: Reports: Hx Diabetes Mellitus Type 2 Renal/ Medical History: Denies: Hx Peritoneal Dialysis Psychiatric Medical History: Reports: Hx Depression Past Surgical History: Reports: Hx Orthopedic Surgery, Hx Tonsillectomy - Immunizations Hx Diphtheria, Pertussis, Tetanus Vaccination: Yes Review of Systems - Review of Systems Notes: My Normal Review Basic REVIEW OF SYSTEMS: CONSTITUTIONAL : Denies fever, chills, or sweats. Denies recent illness. RESPIRATORY: Denies cough, cold, or chest congestion. Denies shortness of breath, difficulty breathing, or wheezing. GASTROINTESTINAL: Denies abdominal pain. Denies nausea, vomiting, or diarrhea. MUSCULOSKELETAL: Denies neck or back pain or joint pain or swelling. SKIN: Denies rash or skin lesions. HEMATOLOGIC : Denies easy bruising or bleeding. NEUROLOGICAL: Denies altered mental status or loss of consciousness. Has a headache. Denies weakness or paralysis or loss of use of either side. Denies problems with gait or speech. Denies sensory or motor loss. PSYCHIATRIC: Denies anxiety or stress or depression. ALL OTHER SYSTEMS REVIEWED AND NEGATIVE. Physical Exam - Vital signs Vitals: Temp Pulse Resp BP Pulse Ox 98.5 F 92 18 136/64 H 95 03/21/18 23:08 03/21/18 23:08 03/21/18 23:08 03/21/18 23:08 03/21/18 23:08 - Notes Notes: General Appearance: Well nourished, alert, cooperative, no acute distress, no obvious discomfort. Well-appearing. Vitals: reviewed, See vital signs table. Head: no swelling or tenderness to the head Eyes: PERRL, EOMI, Conjuctiva clear Mouth: No decreasd moisture Throat: No tonsillar inflammation, No airway obstruction, No lymphadenopathy Neck: Supple, no neck tenderness, no neck swelling. Lungs: No wheezing, No rales, No rhonci, No accessory muscle use, good air exchange bilaterally. Heart: Normal rate, Regular rythm, No murmur, no rub Extremities: strength 5/5 in all extremities, good pulses in all extremities, no swelling or tenderness in the extremities, no edema. Skin: warm, dry, appropriate color, no rash Neuro: speech clear, oriented x 3, normal affect, responds appropriately to questions. Cranial nerves II through XII are intact. Distal sensation intact. Patient moves all extremities without difficulty. Course - Re-evaluation Re-evalutation: 03/22/18 00:32 I have discussed with the patient after my initial evaluation the need to workup for possible subarachnoid hemorrhage or aneurysm. I informed her that lumbar puncture is one test that has 100% sensitivity. I informed her CTA does not have 100% sensitivity. I told her this would show evidence of aneurysm which would would cause higher suspicion. I informed her CT is insensitive but is not 100% sensitivity and therefore lumbar puncture is ultimately recommended. Patient does not want a lumbar puncture at this time and prefers to go forward with CTA. We will do CTA and wait for the results from there. Patient says the pain that she has now is mild and she does not want any pain medication at this time. 03/22/18 04:11 CTA of the head was negative. I went back and discussed with patient again lumbar puncture. I did inform her that I do recommend lumbar puncture. Reviewed with her and her kids of the risks and benefits of lumbar puncture. Patient is very nervous about having lumbar puncture performed as she said that she is has a history of chronic anemia and has had bleeding several times and they can never find out where she bleeds from or why she bleeds. She is currently undergoing a workup by her pillow filler. She says that she is concerned that she would start bleeding from lumbar puncture. I informed her that this is less likely being that she is not on blood thinners however I cannot absolutely 100% told her that there is no risk of bleeding of the spinal cord with lumbar puncture. At this time she feels good and says that she prefers to follow-up with a neurologist. She says that she would discuss it further with them. She is aware that recurrent bleeding or aneurysmal bleed can lead to cerebral edema as well is severely impaired neurologic function which can lead to . I did discuss this with her and she is understanding of it. She said she would return to ER immediately if she had recurrent worsening headaches, vomiting, or if she felt unwell in any way. Informed the patient that we want what is best for her and therefore we definitely want to come back anytime if she feels she is worsening we are happy to reassess her at any time. Patient shows appreciation of this and will be discharged as she requested. Dictation of this chart was performed using voice recognition software; therefore, there may be some unintended grammatical errors. - Vital Signs Vital signs: Temp Pulse Resp BP Pulse Ox 98.5 F 92 18 136/64 H 95 03/21/18 23:08 03/21/18 23:08 03/21/18 23:08 03/21/18 23:08 03/21/18 23:08 - Laboratory Result Diagrams: 03/22/18 00:08 03/22/18 00:08 Laboratory results interpreted by me: 03/22/18 03/22/18 00:08 00:08 RDW 16.0 H Carbon Dioxide 32 H BUN 25 H Calcium 10.3 H Discharge - Discharge Clinical Impression: Headache Qualifiers: Headache type: unspecified Headache chronicity pattern: acute headache I ntractability: not intractable Qualified Code(s): R51 - Headache Condition: Stable Disposition: HOME, SELF-CARE Additional Instructions: As discussed with you the CT scan of her head is not 100% ruling out a potential brain bleed. Lumbar puncture is only thing is 100%. We recommend a lumbar puncture; however, we respect your decision not to go forward with this procedure based on your concern for risks associate with a lumbar puncture. We want what is best for you. As discussed with you a brain bleed can be devastating causing edema in your brain and could potentially eventually lead to if you have a continuous large bleed. We therefore want you to have a very low threshold to return to ER immediately if you have severe headache, vomiting, or feel that you are worsening in any way. Please follow-up closely with the neurologist, Dr. Weinberg, for reevaluation. Referrals: MILAGROS WEINBERG MD [NO LOCAL MD] - 03/23/18 (Call office Friday to make a follow up appointment.)
[2018-03-22 00:35] LABS: INTERNATIONAL RATION (INR) 0.86; PARTIAL THROMBOPLASTIN TIME 29.3 SEC (23.5-35.8); PROTHROMBIN TIME 12.2 SEC (11.4-15.4)
[2018-03-22 00:48] LABS: ANION GAP 11 (5-19); BLOOD UREA NITROGEN 25 mg/dL (7-20); CALCIUM 10.3 mg/dL (8.4-10.2); CARBON DIOXIDE 32 mmol/L (22-30); CHLORIDE 99 mmol/L (98-107); GLUCOSE 91 mg/dL (75-110); POTASSIUM 4.1 mmol/L (3.6-5.0); SODIUM 141.7 mmol/L (137-145)
--- NOTE | 2018-03-22 02:13 | RADIOLOGY REPORT (SQ) ---
EXAM DESCRIPTION: CT HEAD ANGIOGRAPHY WITHOUT THEN WITH IV CONTRAST COMPLETED DATE/TME: 03/21/2018 23:48 CLINICAL HISTORY: 73 years Female, headache Comparison: None. Technique: IV contrast. Coronal and sagittal reformat. 3d reconstruction. This exam was performed according to our departmental dose-optimization program, which includes automated exposure control, adjustment of the mA and/or kV according to patient size and/or use of iterative reconstruction technique. [facility]: Dose Right [facility]: CareDose [facility]: Dose Right [facility]: Teradose 4D [facility]: Smart No [employer] LIMITATIONS: None Findings: CTA, head: Intact [place]. No aneurysm. No occlusion. Atherosclerotic vascular disease. Other: Mild right maxillary mucosal thickening. Impression: No acute findings.
[2018-03-22 04:53] VITALS: BP 138/80
== END 2018-03-22 03:15 | disposition home or self-care (01) ==
LOC: ER 22:59
DX: R51 Headache (principal); E11.9 Type 2 diabetes mellitus without complications; J45.909 Unspecified asthma, uncomplicated; Z88.4 Allergy status to anesthetic agent
CPT/HCPCS: 99284; 96360; 36415; 85025; 85610; 85730; 80048; 70496; J7030

== ENCOUNTER → 2018-04-27 | Outpatient (CLI) | payer MEDICARE ==
--- NOTE | 2018-04-27 11:10 | RADIOLOGY REPORT (SQ) ---
EXAM DESCRIPTION: MRI HEAD COMBO COMPLETED DATE/TIME: 04/27/2018 9:22 am REASON FOR STUDY: HEADACHE (R51), UNSPEC VISUAL DISTURBANCE (H53.9) R51 HEADACHE COMPARISON: None. TECHNIQUE: Multiplanar imaging includes noncontrasted T1, T2, FLAIR, diffusion with ADC map and post gadolinium contrast T1 sequences. Images stored on PACS. CONTRAST TYPE AND DOSE: 15 mL Dotarem. RENAL FUNCTION: Not indicated. ACR Type II contrast agent associated with few, if any, unconfounded cases of NSF LIMITATIONS: None. FINDINGS: ANATOMY: No anomalies. Normal vascular flow voids. Pituitary fossa normal. CSF SPACES: Normal in size and contour. No hemorrhage. CEREBRUM: Sulci and gyri normal in size and contour. Normal white matter signal on FLAIR imaging. No evidence of hemorrhage, mass, or extraaxial fluid collection. No abnormal enhancement post contrast. POSTERIOR FOSSA: No signal alteration. No hemorrhage. No edema, masses, or mass effect. Internal tosin tory canals, cerebellopontine angles, mastoids normal. No enhancing lesions. No abnormal enhancement post contrast. DIFFUSION IMAGING: Negative for acute or subacute infarction. ORBITS: No masses. Globes normal. PARANASAL SINUSES: Mucous membrane thickening in the right maxillary sinus. OTHER: No other significant finding. IMPRESSION: NORMAL MRI OF THE BRAIN WITHOUT AND WITH INTRAVENOUS GADOLINIUM CONTRAST. RIGHT MAXILLARY SINUS DISEASE. EVIDENCE OF ACUTE STROKE: NO. TECHNICAL DOCUMENTATION: JOB ID: [id number] [employer]- All Rights Reserved Reading location - IP/workstation name: [email or web address]
== END ==
LOC: RAD 08:24
PROVIDERS: ATTEND Internal Medicine
DX: R51 Headache (principal); H53.9 Unspecified visual disturbance
CPT/HCPCS: 82565; 70553; A9576